=== PATIENT | female | born 1990 | race Caucasian/White ===

== ENCOUNTER 2017-12-26 17:26 | Emergency (ER) | payer MEDICAID ==
[~2017-12-26] VITALS: Ht 165.1 cm; Wt 107.5 kg
[2017-12-26 17:30] VITALS: Ht 165.1 cm; Wt 107.5 kg
[2017-12-26 19:33] LABS: BASOPHIL % 0.4 % (0-2); PLATELET COUNT 215 x10^3mcL (130-400); RED CELL DISTRIBUTION WIDTH 13.1 % (11.5-14.5)
[2017-12-26 19:35] LABS: CALCIUM 8.5 mg/dL (8.5-10.1); CARBON DIOXIDE 32.3 mmol/L (21-32); CHLORIDE SERUM 105 mmol/L (98-107); CREATININE SERUM 0.7 mg/dL (0.6-1.0); GFR1 > 60 mL/min; GLUCOSE SERUM 95 mg/dL (74-106); POTASSIUM SERUM 3.2 mmol/L (3.5-5.1); SODIUM SERUM 142 mmol/L (136-145)
[2017-12-26 19:39] LABS: ALBUMIN 3.7 g/dL (3.4-5.0); ALKALINE PHOSPHATASE 72 U/L (46-116); ALT/SGPT 23 U/L (14-59); AST/SGOT 15 U/L (15-37); BILIRUBIN TOTAL 0.27 mg/dL (0.20-1.00); LIPASE 185 IU/L (73-393); TOTAL PROTEIN, SERUM 7.4 g/dL (6.4-8.2)
[2017-12-26 21:09] VITALS: BP 136/86
== END 2017-12-26 21:18 | disposition home or self-care (01) ==
LOC: ED 17:26
PROVIDERS: Emergency Medicine
DX: K80.20 Calculus of gallbladder without cholecystitis without obstruction (principal)
CPT/HCPCS: J1885; Q0092; Q0162

== ENCOUNTER 2020-04-16 12:46 | Emergency (ER) | payer MEDICAID ==
[~2020-04-16] VITALS: Ht 165.1 cm; Wt 122.5 kg
[2020-04-16 12:53] VITALS: Ht 165.1 cm; Wt 122.5 kg
[2020-04-16 14:44] VITALS: BP 113/66
== END 2020-04-16 14:44 | disposition home or self-care (01) ==
LOC: ED 12:46
DX: K80.70 Calculus of gallbladder and bile duct without cholecystitis without obstruction (principal)